=== PATIENT | female | born 1975 | race Caucasian/White ===

== ENCOUNTER 2016-07-15 07:48 | Emergency (ER) | payer OTHER ==
[~2016-07-15] VITALS: Ht 162.6 cm; Wt 123.6 kg
[2016-07-15 07:52] VITALS: BP 170/98; PULSE 91; RESP 14; O2SAT 99
[2016-07-15 08:07] VITALS: BP 140/79; PULSE 71; RESP 12; O2SAT 97
--- NOTE | 2016-07-15 08:21 | ED.REPORT ---
HPI-Chest Pain 40 and Over Date of Service Jul 15, 2016 ED Provider: Clarence Schwartz MD A 40 year old female presents to the ED complaining of left sided chest pain that began 4 days ago. She describes the pain as a "pinch". Patient took Tums with some relief and the pain is also received by belching. Her pain is not exacerbated by anything. The episodes of pain have been inconsistent and intermittent since onset. Patient has no prior similar episodes of pain. She denies history of heart disease, use of IV drugs, recent viral illness, or increased SOB. She also denies any recent long trips, immobilization, recent surgery, or history of blood clot. Patient denies cough, nausea, vomiting or chills. Nursing Notes Stated Complaint: CHEST PAIN Chief Complaint: Chest Pain Nursing Notes Reviewed: Yes Allergies: Coded Allergies: No Known Allergies (Unverified , 07/15/16) Scheduled Lisinopril (Lisinopril) 5 Mg Tablet 5 MG PO DAILY General Time Seen by MD: 08:16 Chief Complaint Chest pain Hx Obtained From: Patient Arrived By: Walk-in Sudden in Onset?: No Onset Occurred: 3 days ago Symptom Duration: Since onset Location: : Chest left Quality: Painful ("pinching") Radiation: : Does not radiate Migration/Movement: Reports: None Severity: Current: Mild Severity: Maximum: Mild Associated with: Reports: Belching, Denies: Nausea, Vomiting Pertinent Negative: Pt denies other symptoms Pertinent Negative: Exacerbated by nothing Recent Healthcare: No recent doctor visit, No recent hospitalization Risk Factors )( CAD Risk Stratification Risk factors reviewed )( TAD Risk Stratification Risk factors reviewed )( PE Risk Stratification Risk factors reviewed Past Medical History Past Medical History Denies Denies: COPD, Congestive heart failure, Coronary artery disease Past Surgical History None reported. Smoking History Unknown if Ever Smoker Social History Other Social History: Good social support, Local resident Ambulatory Status Independent Review of Systems Constitutional: Denies: Chills, Fever Respiratory: Denies: Shortness of breath Cardiovascular: Reports: Chest pain GI: Denies: Abdominal pain, Nausea, Vomiting Neurologic: Denies: Change LOC Complete sys rev & neg: except as marked. Physical Exam Initial Vital Signs Vital Signs (First) Date Time Temp Pulse Resp B/P Pulse Ox O2 Delivery O2 Flow Rate FiO2 07/15/16 07:52 91 14 170/98 99 Room Air 07/15/16 08:07 36.6 07/15/16 08:52 2 Initial VS: Reviewed Head / Eyes: Atraumatic, Normocephalic, PERRL Extremities: Vascular intact, Neuro intact, No swelling, No tenderness Neurologic: Alert, Oriented, Nonfocal Psychiatric: Mood/affect normal, Behavior normal, Normal thought content General/Constitutional: Awake, Alert, No acute distress Respiratory / Chest: Atraumatic, Breath sounds NL, Breath sounds = bilat Cardiovascular: Heart rate NL, Regular rhythm, Heart sounds NL, No gallop, No murmurs, No rubs, Peripheral circulation NL, Pulses = bilaterally Abdomen: Atraumatic, Soft, Non-tender, No distention Skin: Atraumatic, Color NL, No rash, Warm (well perfused), Dry, Intact Interpretation & Diagnostics Lab Results Interpretation Result Diagram: 07/15/16 0820 07/15/16 0820 Test 07/15/16 08:20 07/15/16 10:15 07/15/16 15:45 White Blood Count 7.0th/mm3 (3.8-10.1) Red Blood Count 4.63mil/mm3 (3.90-5.20) Hemoglobin 13.2g/dL (12.0-15.6) Hematocrit 38.6% (35.0-46.0) Mean Corpuscular Volume 83.4fL (81-100) Mean Corpuscular Hemoglobin 28.5pg (27.0-35.0) Mean Corpuscular Hemoglobin Concent 34.2% (32.0-37.0) Red Cell Distribution Width 15.2% (12.3-15.4) Platelet Count 187bil/L (150-400) Neutrophils (%) (Auto) 59.7% (40-74) Lymphocytes (%) (Auto) 29.8% (14-46) Monocytes (%) (Auto) 7.0% (4-12) Eosinophils (%) (Auto) 2.9% (0-5) Basophils (%) (Auto) 0.3% (0-3) Sodium Level 138mEq/L (134-144) Potassium Level 4.5mEq/L (3.5-5.2) Chloride Level 103mEq/L (97-108) Carbon Dioxide Level 21mmol/L (18-29) Blood Urea Nitrogen 13mg/dL (6-24) Creatinine 0.81mg/dL (0.57-1.00) Estimat Glomerular Filtration Rate 112mL/min (>59) Glucose Level 119mg/dL (60-99) Calcium Level 10.0mg/dL (8.5-10.1) Magnesium Level 1.9mg/dL (1.6-2.6) Total Bilirubin 0.3mg/dL (0.0-1.2) Aspartate Amino Transf (AST/SGOT) 25U/L (0-50) Alanine Aminotransferase (ALT/SGPT) 28U/L (0-32) Alkaline Phosphatase 75U/L (25-150) Total Protein 7.7g/dL (6.4-8.4) Hold Wilhelm Top Tube Received (Received) Troponin T < 0.010ug/L (0.0-0.011) ECG Interpretation ECG Interpretation: Anterior ST elevation Inferior ST depression Sinus rhythm at 73 bpm Greater than 2 mm in V1 and greater than 3-4mm in V2 V3 Borderline inferior ST Inverted T waves in V6 Nonspecific ventricular conduction delay Left bundle branch block Time: 08:29 Interpreted by: ED physician X-Ray Chest Interpretation Chest Xray Interpretation: IMPRESSION: Mild cardiomegaly. Dictated by: Nereyda Coburn M.D. on 07/15/2016 at 9:18 Interpretation / Wet Read by: Interpret - Radiologist Re-Eval/Medical Decision Med Decision/Clinical Course In summary the patient is a 40 year old female who presents to the ED complaining of left sided chest pain that began 4 days ago. She describes the pain as a "pinch", pain is relieved by burping and with Tums. Upon arrival she is afebrile, hemogram stable and in no apparent distress. EKG demonstrates a left bundle branch block as documented above there are no prior EKGs available for comparison. The patient was initially treated with: 324mg Aspirin GI cocktail She reported that she had complete resolution of her symptoms with the GI cocktail. Chest x-ray demonstrated clear lung mendoza though evidence of cardiomegaly. Her studies were notable as below: CBC unremarkable Troponin negative Repeat Troponin negative The patient's chest pain is not suggestive of an acute cardiac process. I am unconvinced of acute coronary syndrome or ischemic heart disease in this patient. It is quite atypical however that the patient has a left bundle- branch block at the age of 40 and with no cardiac history. The patient was discussed with cardiology who recommended formal echocardiogram which demonstrated "severe cardiomyopathy" with an ejection fraction of roughly 35% and global hypokinesis. The cause of this at this time is unclear, she denies any recent viral illnesses, any history of familial cardiomyopathy and any history of ischemic disease, drug abuse or use of cardiotoxic medications. The patient was evaluated at the bedside by cardiology who recommended admission however the patient refused admission stating that she would prefer further workup as an outpatient because she "felt fine". Therefore, the patient was started on lisinopril and additional laboratory studies were obtained. Follow- up with deejaye directly between the patient and attending rice field worker at the bedside. The patient was discharged in stable condition. Follow-up and return precautions were reviewed in detail she verbalized understanding and agreement with the plan. Time of Eval: 10:02 Patient Status: Condition improved Re-Evaluation/Progress Note: Patient is rechecked. She is informed of her EKG results and the possiblity of admission. Time of Eval: 14:11 Patient Status: Condition improved Re-Evaluation/Progress Note: Patient is rechecked. She is informed of her US and diagnosis. All of the patient's questions are addressed. Patient is requesting to be discharged Consultation #1: Referral / Consult Name: Sagrario Razo MD Consulted With: Cardiology Call Returned at: 14:11 Wall To Wall Carpet Installer: Will see patient, Agrees with eval, Agrees with plan, Accepts admit Note: Recommends admit for observation Consultation #2: Referral / Consult Name: Sagrario Razo MD Consulted With: Cardiology Call Returned at: 14:22 Wall To Wall Carpet Installer: Will see patient, Agrees with eval, Agrees with plan Note: Agrees to meet with the patient and develop follow up plan Counseled Regarding: Diagnosis, Lab results, Need for follow-up, When/why to return to ED Discharge & Departure Primary Impression: Chest pain Chest pain type: unspecified Qualified Code: R07.9 - Chest pain, unspecified Additional Impressions: Left bundle branch block Cardiomyopathy Heart failure with reduced ejection fraction Acid reflux disease Esophagitis presence: esophagitis presence not specified Qualified Code: K21.9 - Gastro-esophageal reflux disease without esophagitis Disposition: Home Discharge Condition All VS Reviewed: Yes Condition: Stable Patient Instructions: Chest Pain (ED) Additional Instructions: Thank you for seeking care at emergency room. You were seen today because he had chest pain. Her EKG was abnormal and we got an ultrasound of her heart that showed the heart is not functioning normally. This is called cardiomyopathy. We have recommended the you be admitted to the hospital for further workup but you did not want to stay in the hospital so you were seen here by her rice field worker's. Please follow all of their recommendations and follow-up plan. You should return to the ED immediately if you develop chest pain, shortness of breath, fatigue, weight gain, leg swelling, fevers, vomiting, cough, shortness of breath, chest pain, lightheadedness, weakness or any other concerning signs or symptoms. Thank you for letting us partake in your care today. Referrals: Sagrario Razo MD Crit Care Except Billable Proc Time Spent: 75-104 minutes Services Performed: Patient management by me, Time spent at bedside, Reviewing test results, Reviewing imaging, Discussing patient care, Documentation in record, Time with fam/surrogate Scribe Attestation Portions of this note were transcribed by Todd Rodriguez. I, Dr. Schwartz personally performed the history, physical exam and medical decision-making; I reviewed and confirmed the accuracy of the information in the transcribed note. Signed by: Todd Rodriguez, 07/15/16, 1100. copies to: Sagrario Razo MD, Beck O MD Jul 15, 2016 08:21 TODD RODRIGUEZ Jul 15, 2016 08:43
[2016-07-15 08:33] LABS: BASOPHILS % (AUTO) 0.3 % (0-3); EOSINOPHILS % (AUTO) 2.9 % (0-5); Mean Corpuscular Hemoglobin 28.5 pg (27.0-35.0); Mean Corpuscular Volume 83.4 fL (81-100); NEUTROPHILS % (AUTO) 59.7 % (40-74); Platelet Count 187 bil/L (150-400)
[2016-07-15 08:52] VITALS: BP 129/53; PULSE 72; RESP 15; O2SAT 98
[2016-07-15 09:06] LABS: Magnesium 1.9 mg/dL (1.6-2.6)
[2016-07-15 09:07] LABS: TROPONIN T < 0.010 ug/L (0.0-0.011)
--- NOTE | 2016-07-15 09:20 | DRSVH ---
PROCEDURE: X-RAY CHEST ONE VIEW, PORTABLE ([id number]) INDICATIONS: CHEST PRESSURE TECHNIQUE: One view of the chest was acquired. COMPARISON: None. FINDINGS: Surgical changes and devices: None. Lungs and pleura: No pleural effusions or pneumothorax. Lungs are clear. Mediastinum: Mediastinal contours appear normal. Heart size is mildly enlarged. Bones and chest wall: No suspicious bony lesions. Overlying soft tissues appear unremarkable. IMPRESSION: Mild cardiomegaly. Dictated by: Neeryda Coburn M.D. on 07/15/2016 at 9:18 Approved by: Nereyda Coburn M.D. on 07/15/2016 at 9:18
[2016-07-15] MEDS ORDERED: Alum-Mag Hydrox-Simeth 30 mL Suspension PO ONE (09:40)
[2016-07-15] MEDS ORDERED: Alum-Mag Hydrox-Simeth 30 mL Suspension PO PRN (09:45)
[2016-07-15] MEDS ORDERED: Ondansetron 2 mg/mL 2 mL Inj IVPUSH PRN (09:45)
[2016-07-15 10:42] VITALS: BP 126/67; PULSE 77; RESP 18; O2SAT 99
--- NOTE | 2016-07-15 12:26 | CONS ---
[address] [address] CONSULTATION REPORT PATIENT: SHRUTHI ADAMS : 1975 MR#: [id number] ADMIT: 07/15/2016 JOB ID: [id number] CARDIOLOGY NOTE--INTERVENTIONAL CARDIOLOGY ON-CALL: DATE: Friday, July 15, 2016. I was called by ED Physician this AM to review ECG regarding BRYCE to consider to activate Microbiology Director for STEMI. ECG shows SR with LBBB. No prior ECG available. I advised no interpretable BRYCE due to IVCD(and no other ECG criteria of STEMI equavilent with LBBB); but recommended Stat Echo for WMA to evaluate for STEMI equivalent. Additionally, on evaluation, ED reports clinical impression is very low likelihood of ACS in view of comfortable patient with Tn not elevated after 4 days of CP that is almost certainly non cardiac("pinching" at left side); and considering possible GI etiology. We discussed: Defer Microbiology Director. Cardiology Consultation not requested. Consider Hyperkalemia. Further evaluation per ED: Including serial Tn; and RE: LBBB may indicate underlying cardiac disease/cardiomyopathy. Follow-Up: Echo completed. I reviewed the images preliminarily(severely limited study). Note severe global LV dysfunction with mostly diffuse hypokinesis; and not suggestive of WMA of acute NV. EF=30-35%. CXR Reviewed: Note Cardiomegaly with no PVH/CHF. Discussed further with ED, Dr. Schwartz: Consider admission for new presentation of CM, including for diagnostic evaluation; and to initiate Optimal Medical Therapy. Your evaluation regarding her presenting symptoms; and any other underlying illness. Please call for Cardiology consultation if needed Thanks, Stevan Dooley MD Cardiology. [facility]
[2016-07-15 13:37] VITALS: BP 137/71; PULSE 73; RESP 16; O2SAT 98
[2016-07-15] MEDS ORDERED: 0.9% Sodium Chloride 1,000 ML ONE (13:47)
[2016-07-15] MEDS ORDERED: Heparin 1,000 Unit/mL 10 mL Inj ONE (13:47)
[2016-07-15] MEDS ORDERED: Heparin 1,000 Units/500 mL NS Premix IV ONE (13:47)
[2016-07-15] MEDS ORDERED: Heparin 5,000 Units/500 mL NS Premix IV ONE (13:47)
[2016-07-15] MEDS ORDERED: Nitroglycerin 50,000 mcg/250 mL D5W Premix IV ONE ×2 (13:47→13:50)
[2016-07-15] MEDS ORDERED: MeTOProlol 1 mg/mL 5 mL Inj ONE (13:50)
[2016-07-15] MEDS ORDERED: Heparin 5,000 Unit/mL Inj ONE (13:50)
[2016-07-15] MEDS ORDERED: Tirofiban 12.5 mg/250 mL NS Premix IV ONE (13:50)
[2016-07-15] MEDS ORDERED: Nitroglycerin 2% 1 Gm Ointment TOPICAL ONE (13:50)
[2016-07-15] MEDS ORDERED: Ondansetron 2 mg/mL 2 mL Inj ONE (13:50)
[2016-07-15] MEDS ORDERED: Heparin 25,000 Unit/500 mL 0.45% NS Premix IV ONE (13:50)
[2016-07-15] MEDS ORDERED: NITROGLYCERIN SL ONE (13:50)
[2016-07-15] MEDS ORDERED: Alum-Mag Hydrox-Simeth 30 mL Suspension ONE (13:52)
--- NOTE | 2016-07-15 14:08 | DRSVH ---
[facility] [address] [place] [address] Echocardiogram Report Name: SHRUTHI ADAMS te: 07/15/2016 Height: 64 in Hospital Exam Location: [facility] Weight: 273 lb Gender: Female BSA: 2.2 m2 : 1975 Age: 40 yrs BP: 115/59 mmHg Reason For Study: CHEST PAIN Ordering Physician: Performed By: Ivory Recinos Referring Physician: DR. DONOVAN Interpretation Summary Normal sinus rhythm. Mildly dilated LV; normal wall thickness; severe global hypokinesis. EF is 25 -30%. There is mild LA enlargement. No significant valvular abnormalities. No prior study available for comparison. Procedure: A two-dimensional transthoracic echocardiogram with color flow and Doppler was performed. Image quality is poor. A contrast injection of Definity was performed to improve assessment of LV function. Contrast was injected into an intravenous site in the left arm. A total of 5 cc of contrast was given. There is no prior echocardiogram noted for this patient. The patient was in normal sinus rhythm during the exam. The patient did well with the Definity Contrast. No complications were noted. Left Ventricle: The left ventricle is mildly dilated. Left ventricular wall thickness is mildly increased. Left ventricular systolic function is moderately reduced. There is septal wall akinesis. There is inferior wall severe hypokinesis. Right Ventricle: The right ventricle is normal in size and function. Atria: The left atrium is mildly dilated. Right atrial size is normal. There is no Doppler evidence for an atrial septal defect. Mitral Valve: The mitral valve leaflets appear normal. There is no evidence of stenosis, fluttering, or prolapse. There is mild mitral regurgitation. Aortic Valve: The aortic valve is not well visualized. The aortic valve opens well. No aortic regurgitation is present. Tricuspid Valve: The tricuspid valve leaflets are thin and pliable. There is trace tricuspid regurgitation. The right ventricular systolic pressure is estimated at 26 mmHg assuming a right atrial pressure of 3 mm Hg. Pulmonic Valve: The pulmonic valve is not well visualized. There is a trace or physiologic amount of pulmonic regurgitation. Great Vessels: The aortic root is normal size. The dimensions of the ascending aorta are normal. The pulmonary artery is not well visualized, but is probably normal size. The IVC is of normal diameter and collapses greater than 50% with a sniff. This suggests a low right atrial pressure of 3 mm Hg. Pericardium/ Pleura There is no pericardial effusion. There is no pleural effusion. MMode/2D Measurements & Calculations LVIDd: 6.1 cm LA dimension: 4.9 cm RA long axis: 4.4 cm LVOT diam LVIDs: 5.0 cm FS: 18.6 % LA A2 area: 21.2 cm RA area: 14.7 cm AoV Opening EPSS: 1.8 cm LA A4 area: 22.9 cm RA vol: 41.6 ml IVSd: 1.1 cm LA length (vol): 5.5 cm RA : 18.6 ml/m Ao root diam LVPWd: 1.2 cm LA vol: 74.4 ml RVDd minor: 3.2 cm LA vol index asc Aorta Diam: 2.9 cm : 33.3 ml/m2 EDV(MOD-sp2) LV juarez. diameter/BSA LV sys. diameter/BSA : 170.9 ml (cm/m^2): 2.7 (cm/m^2): 2.2 Doppler Measurements & Calculations Ao V2 max MV E max jeremiah MV E/A: 1.8 TR max jeremiah : 171.0 cm/sec : 87.2 cm/sec Med Peak E' Jeremiah : 238.8 cm/sec Ao max PG MV A max jeremiah TR max PG : 11.7 mmHg : 49.2 cm/sec E/E' med: 18.4 : 22.8 mmHg Ao mean PG MV P1/2t: 55.5 msec Lat Peak E' Jeremiah PA V2 max : 94.2 cm/sec LVOT Max Jeremiah E/E' lat: 13.2 PA mean PG : 106.2 cm/sec Pulm A Revs Dur PA Accel Time JOEY(I,D): 1.9 cm MV A dur: 0.10 sec : 0.10 sec sev ratio MV dec time MV P1/2t max jeremiah Ao V2 mean LV V1 max PG : 0.18 sec : 117.4 cm/sec MVA(P1/2t): 4.0 cm2 Ao V2 VTI: 29.9 cm LV V1 VTI JOEY(V,D): 1.9 cm2 : 18.6 cm PA V2 mean JOEY indexed to BSA Pulm A Revs Dur - MV : 65.3 cm/sec (cm^2/m^2): 0.85 A Dur: 0.02 msec Reading Physician:02:07 PM
[2016-07-15] MEDS ORDERED: LISI-571 PO (15:19)
[2016-07-15 15:45] VITALS: BP 142/71; PULSE 85; RESP 16; O2SAT 98
--- NOTE | 2016-07-15 16:18 | CONS ---
[address] [address] CONSULTATION REPORT PATIENT: SHRUTHI ADAMS : 1975 MR#: [id number] ADMIT: 07/15/2016 JOB ID: [id number] DATE OF SERVICE: 07/15/2016 CHIEF COMPLAINT: Pinching chest pain. HISTORY OF PRESENT ILLNESS: The patient is a 40-year-old woman with no past medical history. She comes in for pinching substernal chest pain that started four days ago and has been off and on but almost constant. Her workup, an EKG in the ED showed left bundle branch block of unknown chronicity. Her serial troponins are negative. Unfortunately, echocardiogram showed severe cardiomyopathy, EF of 25% to 30% with mildly dilated LV, and Cardiology is consulted to assist with management. PAST MEDICAL HISTORY: None. SOCIAL HISTORY: The patient does not smoke. She used to smoke but quit. She does not drink alcohol. She is accompanied by her . She lives in [place] but works in [place]. FAMILY HISTORY: Her father from brain cancer in March. She has a cousin who has congestive heart failure and heart attack who is also overweight. REVIEW OF SYSTEMS: Significant for snoring, pinching chest pain. No cough. No orthopnea. No PND. No dyspnea on exertion. Otherwise, 10 point review of systems is negative. ALLERGIES: No known drug allergies. HOME MEDICATIONS: None. PHYSICAL EXAMINATION: Vital signs: Temperature, she is afebrile. Heart rate is 80 beats per minute. Blood pressure 120/80. She is saturating 96% on room air. Overweight woman, in no apparent distress. Eyes: No scleral icterus. Heart: Normal S1, S2. No murmurs. Lungs: Clear to auscultation. Abdomen: Soft, positive bowel sounds. No hepatosplenomegaly. Extremities: Warm, well perfused. No clubbing, cyanosis, or edema. Skin: No rashes or lesions. DIAGNOSTIC STUDIES: EKG shows left bundle branch block. Chest x-ray shows large, globular heart. No lung infiltrates. LABORATORIES: Reviewed. Basic metabolic panel, hepatic panel, CBC are normal. ASSESSMENT: In summary, this is a 40-year-old woman with cardiomyopathy. Her echocardiogram shows ejection fraction of 25% to 30%, and a mildly dilated left ventricle. PLAN: Start lisinopril 5 mg daily. Follow up with in one week to initiate blockade. She does not meet criteria for Lasix at this juncture. She is dry and euvolemic on exam. For pinching chest pain, difficult to say what that is playing. On telemetry, she has not had any arrhythmias. For primary prevention of sudden cardiac we will discuss LifeVest as an outpatient. We will discuss cardiac catheterization as an outpatient. I will order HIV test, TSH, free T4, SPEP, UPEP, a 24-hour urine for pheochromocytoma evaluation and renin aldosterone levels, as well as ferritin level. Maybe we will try to actually do it before she leaves the premises gets done. I offered her the opportunity to be admitted and have invasive workup as an inpatient but she declined. Thank you for the opportunity to evaluate this delightful lady.
[2016-07-17 14:09] LABS: Renin Activity 0.72 ng/mL/hr (.)
[2016-08-21] MEDS ORDERED: METO25TA3 PO (19:29)
== END 2016-07-15 15:23 | disposition home or self-care (01) ==
LOC: SED 07:48
DX: R07.9 Chest pain, unspecified (principal); I44.7 Left bundle-branch block, unspecified; I42.9 Cardiomyopathy, unspecified; I50.9 Heart failure, unspecified; K21.9 Gastro-esophageal reflux disease without esophagitis
CPT/HCPCS: 36415; 71010; 80053; 82088; 82728; 83735; 84165; 84244; 84439; 84443; 84484; 84702; 85025; 93005; 99291; 99292; C8929; G0433; J1644; J7030; Q9957

== ENCOUNTER 2016-08-22 00:28 | Day surgery (SDC) | payer OTHER ==
[~2016-08-22] VITALS: Ht 162.6 cm; Wt 122.6 kg
[2016-08-22] VITALS (9 sets, daily range): BP systolic 114–134; BP diastolic 52–67; PULSE 64–71; RESP 14–19; O2SAT 96–97
[~2016-08-22 00:28] MED LIST: LISI-571 PO; METO25TA3 PO
[2016-08-22] MEDS ORDERED: 0.9% Sodium Chloride 1,000 ML IV ONE (07:40)
[2016-08-22 08:06] LABS: BASOPHILS % (AUTO) 0.4 % (0-3); EOSINOPHILS % (AUTO) 2.8 % (0-5); MONOCYTES % (AUTO) 9.4 % (4-12); Mean Corpuscular Hemoglobin 29.1 pg (27.0-35.0); Mean Corpuscular Volume 84.6 fL (81-100); NEUTROPHILS % (AUTO) 49.7 % (40-74); Platelet Count 194 bil/L (150-400)
--- NOTE | 2016-08-22 08:19 | NUR ---
Patient admitted for heart cath with Dr Razo.She is accompanied by her spouse and mother.
[2016-08-22] MEDS ORDERED: 0.9% Sodium Chloride 50 ML ONE (08:46)
[2016-08-22] MEDS ORDERED: Heparin 1,000 Units/500 mL NS Premix IV ONE (08:46)
[2016-08-22] MEDS ORDERED: Heparin 5,000 Units/500 mL NS Premix IV ONE (08:46)
[2016-08-22] MEDS ORDERED: fentaNYL-PF 50 mCg/mL 2 mL Inj ONE (09:41)
--- NOTE | 2016-08-22 11:53 | CS94 ---
[address] [address] DIAGNOSTIC CARDIAC CATHETERIZATION PATIENT: SHRUTHI ADAMS : 1975 MR#: [id number] ADMIT: 08/22/2016 JOB ID: [id number] SERVICE DATE: 08/22/2016 CHIEF COMPLAINT: Cardiomyopathy. PATIENT PRESENTATION: This is a delightful 40-year-old woman with a history of atypical pinching chest discomfort. Was diagnosed with a left bundle branch block, cardiomyopathy, EF of 25% to 30% with mildly dilated LV. She is here for right and left heart catheterization. PROCEDURES PERFORMED: 1. Right and left heart catheterization. 2. Right common femoral artery vascular access under ultrasound guidance. 3. Left common femoral vein access under ultrasound guidance. 4. Sheath placement confirmation via femoral angiogram. 5. Eveleth-John catheter placement in the pulmonary artery with hemodynamic measurements including cardiac output calculated via Arely and thermodilution methods. 6. Full saturation run. 7. Coronary angiograms. 8. Hemodynamic measurement of left ventricular end-diastolic pressure. 9. Ventriculogram deferred by intention. METHOD: Following informed consent, the patient was prepped and draped in sterile fashion. A 6-Indian sheath was placed in right common femoral vein. A 6-Indian sheath was placed in right common femoral artery. Sheath placement was confirmed via femoral angiogram. JL4 and JR4 catheters were used to obtain left main and right coronary artery ostia, respectively. Hand injection in craniocaudal angulation was used to obtain selective coronary angiograms, with changes performed over a wire. A pigtail was advanced into the left ventricle. Left ventricular end-diastolic pressure was recorded. At this point in time, a Eveleth-John catheter was advanced in the right pulmonary artery. Cardiac output was calculated via Arely and thermodilution methods. Hemodynamic measurements were obtained in the right atrium, right ventricle, pulmonary artery and pulmonary capillary wedge pressure. FINDINGS: The following hemodynamics pressures were obtained. Right atrial pressure was 5 Right ventricular pressure 35/10 with end-diastolic pressure of 10, pulmonary artery pressure is 35/15 (mean 22 mm Hg) pulmonary capillary wedge pressure was 13 Aortic pressure was 121/66; LV pressure 121, LVEDP is 24 mm Hg; there is no aortic stenosis based on pullback. I repeated PCWP after pigtail catheter was placed into LV. by then PCWP was actually 21. I suspect it went up due to change in hemodynamic condition and IVF given during the case. Cardiac output by Arely method was 7 L/min CO by thermodilution was 6.7 L/min There is no ventricular interdependence based on simultaneous recordings. No shunt based on full sat run. Coronary arteries: LM gives rise to LAD, RI and LCX; no obstructive lesions seen LAD is a transapical vessel; it gives rise to 3 small diagonal branches and several septal perforators; no obstructive lesions. RI is a large vessel; no obstructive lesions LCX is a dominant vessel; it gives large to large first OM branch and small second OM branch which functions as a PDA; no obstructive lesions are seen RCA is a small non-dominant vessel. It gives rise to a small acute marginal branch. No obstructive lesions are seen. Vascular access: SPIRITUAL COUNSELOR gives rise to SFA and profunda. Sheath enters the right SPIRITUAL COUNSELOR at lower third of femoral head, at the bifurcation. CLOSURE: [employer]. COmplications : none IMPRESSION: Non-ischemic cardiomyopathy with elevated LV filling pressure (24 mm Hg) PLAN: continue diuresis and medical therapy repeat echo - with low threshold to recommend RECRUITING OPERATIONS CONSULTANT if EF fails to improve after 3 months of medical therapy MTDD
[2016-08-22] MEDS ORDERED: LISI-571 PO (13:00)
--- NOTE | 2016-08-22 13:25 | NUR ---
Patient off besrest x 30 minutes. Right groin without bleeding or oozing, bandaid dry and intact. Discharge instructions reviewed and patient sent home ambulatory.
== END 2016-08-22 23:59 | disposition home or self-care (01) ==
LOC: SOUO 00:28
PROVIDERS: ATTEND Internal Medicine
DX: I42.9 Cardiomyopathy, unspecified (principal); I44.7 Left bundle-branch block, unspecified
CPT/HCPCS: 36415; 80048; 84703; 85025; 93460; 99152; 99153; C1760; C1769; J1200; J1644; J2060; J2250; J3010; J7030; Q9967